=== PATIENT | female | born 1975 | race Caucasian/White ===

== ENCOUNTER 2016-10-15 12:01 | Emergency (ER) | payer MEDICARE ==
[2016-10-15 12:32] LABS: HEMOGLOBIN 14.4 gm/dl (12.3-15.3); RED BLOOD COUNT 4.62 M/UL (4.00-5.10); WHITE BLOOD COUNT 13.1 K/UL (4.5-11.0)
[2016-10-15 12:48] LABS: BUN/CREATININE RATIO 11 (0-10)
== END 2016-10-15 15:35 | disposition home or self-care (01) ==
LOC: ER1 12:01
PROVIDERS: Family Medicine
DX: R07.89 Other chest pain (principal); I10 Essential (primary) hypertension; R00.2 Palpitations; R11.0 Nausea; Z88.0 Allergy status to penicillin; Z79.899 Other long term (current) drug therapy; Z90.49 Acquired absence of other specified parts of digestive tract
CPT/HCPCS: 36415; 71010; 80053; 82550; 82553; 83874; 84439; 84443; 84484; 85025; 85379; 93005; 99285